=== PATIENT | female | born 1970 | race African-American/Black ===

== ENCOUNTER 2021-10-18 18:02 | Emergency (ER) | payer MEDICARE, MEDICAID ==
[~2021-10-18] VITALS: Ht 157.5 cm; Wt 91.0 kg
[2021-10-18] MEDS ORDERED: IBUPROFEN 600MG TABLET PO STA (18:24)
[2021-10-18 19:40] LABS: BASOPHILS % 1.1 % (0.0-2.0); EOSINOPHILS % 0.9 % (0.0-5.0); HEMATOCRIT. 47.8 % (36.0-48.0); HEMOGLOBIN. 15.8 g/dL (12.0-16.0); LYMPHOCYTES % 46.3 % (20.0-50.0); MEAN CORPUSCULAR HEMOGLOBIN 27.5 pg (28.0-32.0); MEAN CORPUSCULAR VOLUME 83.1 fL (81.0-99.0); MEAN PLATELET VOLUME 8.7 fl (7.4-10.4); MONOCYTES % 7.9 % (2.0-8.0); NEUTROPHILS % 43.8 % (40.0-76.0); PLATELET 281 x1000/uL (130-400); RED BLOOD CELL COUNT 5.75 mill/uL (4.2-5.4); RED CELL DISTRIBUTION WIDTH 12.6 % (11.6-14.6)
[2021-10-18 19:47] LABS: CHLORIDE 99 mEq/L (98-107)
[2021-10-18] MEDS ORDERED: IBUP-2029 MT (20:05)
[2021-10-18] MEDS ORDERED: CYCL10TA21 MT ×2 (20:05→20:21)
[2021-10-18 20:22] VITALS: BP 125/78
== END 2021-10-18 20:22 | disposition home or self-care (01) ==
LOC: ER 18:02
DX: M54.12 Radiculopathy, cervical region (principal); I10 Essential (primary) hypertension; F41.9 Anxiety disorder, unspecified; G47.30 Sleep apnea, unspecified; Q04.8 Other specified congenital malformations of brain; Z98.84 Bariatric surgery status; Z90.49 Acquired absence of other specified parts of digestive tract
CPT/HCPCS: 36415; 71045; 80053; 85025; 93005; 99291

== ENCOUNTER 2022-08-27 10:52 | Emergency (ER) | payer MEDICARE, MEDICAID ==
[~2022-08-27] VITALS: Ht 157.5 cm; Wt 87.3 kg
[~2022-08-27 10:52] MED LIST: CYCL10TA21 MT; IBUP-2029 MT
[2022-08-27 11:02] VITALS: BP 149/91; PULSE 100; RESP 18; TEMP 98.6; O2SAT 99
[2022-08-27 11:37] LABS: BASOPHILS % 0.9 % (0.0-2.0); EOSINOPHILS % 0.6 % (0.0-5.0); HEMATOCRIT. 40.4 % (36.0-48.0); HEMOGLOBIN. 13.6 g/dL (12.0-16.0); LYMPHOCYTES % 37.8 % (20.0-50.0); MEAN CORPUSCULAR HEMOGLOBIN 28.6 pg (28.0-32.0); MEAN CORPUSCULAR VOLUME 85.1 fL (81.0-99.0); MEAN PLATELET VOLUME 8.6 fl (7.4-10.4); MONOCYTES % 6.9 % (2.0-8.0); NEUTROPHILS % 53.8 % (40.0-76.0); PLATELET 246 x1000/uL (130-400); RED BLOOD CELL COUNT 4.74 mill/uL (4.2-5.4); RED CELL DISTRIBUTION WIDTH 13.2 % (11.6-14.6)
[2022-08-27 11:46] LABS: CHLORIDE 107 mEq/L (98-107)
[2022-08-27 11:50] LABS: PROTHROMBIN TIME 10.4 sec (9.6-11.0)
[2022-08-27] MEDS ORDERED: ALBU6.7H3 INH (14:52)
== END 2022-08-27 16:09 | disposition home or self-care (01) ==
LOC: ER 10:59
DX: R07.89 Other chest pain (principal); F41.9 Anxiety disorder, unspecified; I10 Essential (primary) hypertension; Z98.890 Other specified postprocedural states
CPT/HCPCS: 36415; 71045; 80053; 84484; 85025; 93005; 99285